=== PATIENT | male | born 1975 | race Caucasian/White ===

== ENCOUNTER 2019-01-31 19:30 | Emergency (ER) | payer OTHER ==
[2019-01-31] MEDS ORDERED: FACTOR VIIA 1 MG VIAL IV ×6 (22:00)
[2019-01-31] MEDS: FACTOR VIIA 1 MG VIAL IV ×3 (22:43→22:44)
[2019-01-31] MEDS: HYDROCODONE/APAP (10/325) TAB PO (23:26)
== END 2019-01-31 23:57 | disposition home or self-care (01) ==
LOC: FTE 19:30
DX: D66 Hereditary factor VIII deficiency (principal)
CPT/HCPCS: 96374; 99284-25